=== PATIENT | female | born 1950 | race Hispanic/Latino ===

== ENCOUNTER 2021-03-21 18:52 | Inpatient (IN) | payer MEDICARE ==
[~2021-03-21] VITALS: Ht 152.4 cm; Wt 54.4 kg
[2021-03-21] MEDS ORDERED: ASPIRIN 81 MG CHEW TAB PO ONE (19:15)
[2021-03-21 19:37] LABS: BASOPHILS # (AUTO) 0.1 (0.0-0.1); BASOPHILS % 0.4 % (0.0-1.0); EOSINOPHILS # (AUTO) 0.2 (0.0-0.4); EOSINOPHILS % 1.5 % (0.0-6.0); HEMATOCRIT 35.6 % (34.2-44.1); HEMOGLOBIN 11.1 g/dL (12.0-16.0); LYMPHOCYTES # (AUTO) 1.5 (1.0-3.2); LYMPHOCYTES % 13.5 % (18.0-39.1); MEAN CORPUSCULAR HEMOGLOBIN 27.8 pg (28-32); MEAN CORPUSCULAR HGB CONC 31.2 g/dL (31-35); MEAN CORPUSCULAR VOLUME 89.2 fL (81-99); MONOCYTES # (AUTO) 0.9 (0.2-0.8); MONOCYTES % 7.7 % (4.4-11.3); NEUTROPHILS # (AUTO) 8.6 (2.1-6.9); NEUTROPHILS % 75.4 % (38.7-80.0); PLATELET COUNT 502 x10e3/uL (140-360); RED BLOOD COUNT 3.99 x10e6/uL (3.6-5.1); RED CELL DISTRIBUTION WIDTH 14.9 % (11.7-14.4)
[2021-03-21 19:57] LABS: ALANINE AMINOTRANSFERASE 36 IU/L (0-55); ALBUMIN 2.1 g/dL (3.5-5.0); ALBUMIN/GLOBULIN RATIO 0.4 (0.8-2.0); ALKALINE PHOSPHATASE 239 IU/L (40-150); ANION GAP 14.7 mmol/L (8-16); BLOOD UREA NITROGEN 11 mg/dL (7-26); BUN/CREATININE RATIO 16 (6-25); CALCIUM 8.6 mg/dL (8.4-10.2); CARBON DIOXIDE 23 mmol/L (22-29); CHLORIDE 100 mmol/L (98-107); CREATINE KINASE 20 IU/L (29-168); CREATININE, SERUM 0.68 mg/dL (0.57-1.11); EST GLOMERULAR FILTRATION RATE 85 ML/MIN (60-); GLUCOSE 312 mg/dL (74-118); POTASSIUM 4.7 mmol/L (3.5-5.1); SODIUM 133 mmol/L (136-145)
[2021-03-22 08:52] LABS: BASOPHILS % 0.4 % (0.0-1.0); EOSINOPHILS # (AUTO) 0.1 (0.0-0.4); EOSINOPHILS % 1.2 % (0.0-6.0); HEMATOCRIT 34.4 % (34.2-44.1); HEMOGLOBIN 10.7 g/dL (12.0-16.0); LYMPHOCYTES # (AUTO) 1.5 (1.0-3.2); MEAN CORPUSCULAR HEMOGLOBIN 27.6 pg (28-32); MEAN CORPUSCULAR HGB CONC 31.1 g/dL (31-35); MEAN CORPUSCULAR VOLUME 88.7 fL (81-99); MONOCYTES # (AUTO) 0.8 (0.2-0.8); MONOCYTES % 8.6 % (4.4-11.3); NEUTROPHILS # (AUTO) 6.6 (2.1-6.9); NEUTROPHILS % 72.3 % (38.7-80.0); PLATELET COUNT 455 x10e3/uL (140-360); RED BLOOD COUNT 3.88 x10e6/uL (3.6-5.1); RED CELL DISTRIBUTION WIDTH 14.9 % (11.7-14.4)
[2021-03-22 09:13] LABS: ALBUMIN 2.1 g/dL (3.5-5.0); ALBUMIN/GLOBULIN RATIO 0.5 (0.8-2.0); ANION GAP 14.1 mmol/L (8-16); CALCIUM 8.5 mg/dL (8.4-10.2); CREATININE, SERUM 0.58 mg/dL (0.57-1.11); POTASSIUM 4.1 mmol/L (3.5-5.1)
[2021-03-22 09:50] LABS: CREATINE KINASE 17 IU/L (29-168)
[2021-03-22] MEDS ORDERED: HYDRALAZINE HCL 20 MG/ML VIAL IV PRN (11:15)
[2021-03-22] MEDS ORDERED: DEXTROSE 50% SYRINGE 50 ML IV PRN (11:15)
[2021-03-22] MEDS: INSULIN LISPRO 100 UNIT/1 ML 3ML VIAL SQ SCH ×3 (11:37→21:09)
[2021-03-22] MEDS ORDERED: SODIUM CHLORIDE 0.9% 50ML 50 ML ONE (14:58)
[2021-03-22] MEDS ORDERED: IOPAMIDOL 370 MG/ML 200 ML INFUS..BTL INJ ONE (14:59)
[2021-03-22 16:08] VITALS: BP 100/62
[2021-03-22 16:11] VITALS: BP 100/62
[2021-03-22 16:16] VITALS: BP 100/62
[2021-03-22] MEDS: VANCOMYCIN HCL 125 MG CAPSULE PO SCH ×2 (17:17→23:39)
[2021-03-22] MEDS ORDERED: METFORMIN HCL500 MG PO (17:52)
[2021-03-22] MEDS ORDERED: GLIMEPIRIDE2 MG PO (17:52)
[2021-03-22 20:00] VITALS: BP 140/77
[2021-03-22 21:00] VITALS: BP 140/77
[2021-03-22] MEDS: GUAIFENESIN 600MG/DEXTROMETHORPHAN 30MG TABSR PO PRN (22:14)
[2021-03-23] VITALS (8 sets, daily range): BP systolic 106–120; BP diastolic 62–75
[2021-03-23] MEDS: VANCOMYCIN HCL 125 MG CAPSULE PO SCH ×4 (06:07→23:13)
[2021-03-23 06:08] LABS: BASOPHILS # (AUTO) 0.1 (0.0-0.1); BASOPHILS % 0.5 % (0.0-1.0); EOSINOPHILS # (AUTO) 0.2 (0.0-0.4); EOSINOPHILS % 2.2 % (0.0-6.0); HEMATOCRIT 33.4 % (34.2-44.1); HEMOGLOBIN 10.6 g/dL (12.0-16.0); LYMPHOCYTES # (AUTO) 1.5 (1.0-3.2); LYMPHOCYTES % 16.7 % (18.0-39.1); MEAN CORPUSCULAR HEMOGLOBIN 27.2 pg (28-32); MEAN CORPUSCULAR HGB CONC 31.7 g/dL (31-35); MEAN CORPUSCULAR VOLUME 85.6 fL (81-99); MONOCYTES % 10.8 % (4.4-11.3); NEUTROPHILS # (AUTO) 6.3 (2.1-6.9); NEUTROPHILS % 67.7 % (38.7-80.0); PLATELET COUNT 468 x10e3/uL (140-360); RED CELL DISTRIBUTION WIDTH 14.9 % (11.7-14.4)
[2021-03-23 06:18] LABS: ALBUMIN 1.9 g/dL (3.5-5.0); ALBUMIN/GLOBULIN RATIO 0.4 (0.8-2.0); ANION GAP 13.7 mmol/L (8-16); CALCIUM 8.3 mg/dL (8.4-10.2); CREATININE, SERUM 0.52 mg/dL (0.57-1.11); POTASSIUM 3.7 mmol/L (3.5-5.1)
[2021-03-23] MEDS: CHOLECALCIFEROL 400 UNIT TAB PO SCH (09:29)
[2021-03-23] MEDS: ASCORBIC ACID 500 MG TAB PO SCH (09:29)
[2021-03-23] MEDS: ZINC SULFATE 220 MG CAP PO SCH (09:29)
[2021-03-23] MEDS: INSULIN LISPRO 100 UNIT/1 ML 3ML VIAL SQ SCH ×5 (09:29→20:52)
[2021-03-23] MEDS: GUAIFENESIN 600MG/DEXTROMETHORPHAN 30MG TABSR PO PRN ×3 (09:50→23:13)
[2021-03-23] MEDS ORDERED: LACTOBACILLUS ACIDOPHILUS CAPSULE PO NR (10:30)
[2021-03-23] MEDS: LACTOBACILLUS ACIDOPHILUS CAPSULE PO SCH (16:32)
[2021-03-23] MEDS: INSULIN GLARGINE 100 UNITS/ML VIAL SQ SCH (20:54)
[2021-03-24 01:49] VITALS: BP 113/60
[2021-03-24] MEDS: GUAIFENESIN 600MG/DEXTROMETHORPHAN 30MG TABSR PO PRN ×2 (05:22→12:26)
[2021-03-24] MEDS: VANCOMYCIN HCL 125 MG CAPSULE PO SCH ×3 (05:22→16:22)
[2021-03-24 06:13] LABS: BASOPHILS # (AUTO) 0.1 (0.0-0.1); BASOPHILS % 0.8 % (0.0-1.0); EOSINOPHILS # (AUTO) 0.2 (0.0-0.4); EOSINOPHILS % 2.9 % (0.0-6.0); HEMATOCRIT 33.3 % (34.2-44.1); HEMOGLOBIN 10.4 g/dL (12.0-16.0); LYMPHOCYTES # (AUTO) 1.5 (1.0-3.2); LYMPHOCYTES % 18.6 % (18.0-39.1); MEAN CORPUSCULAR HEMOGLOBIN 27.2 pg (28-32); MEAN CORPUSCULAR HGB CONC 31.2 g/dL (31-35); MEAN CORPUSCULAR VOLUME 87.2 fL (81-99); MONOCYTES # (AUTO) 0.9 (0.2-0.8); MONOCYTES % 10.9 % (4.4-11.3); NEUTROPHILS # (AUTO) 5.2 (2.1-6.9); NEUTROPHILS % 63.2 % (38.7-80.0); PLATELET COUNT 439 x10e3/uL (140-360); RED BLOOD COUNT 3.82 x10e6/uL (3.6-5.1)
[2021-03-24 06:27] VITALS: BP 115/64
[2021-03-24 06:35] LABS: ALBUMIN 1.9 g/dL (3.5-5.0); BILIRUBIN,DIRECT 0.2 mg/dL (0.0-0.5)
[2021-03-24 06:58] LABS: ANION GAP 15.7 mmol/L (8-16); CALCIUM 8.2 mg/dL (8.4-10.2); CREATININE, SERUM 0.54 mg/dL (0.57-1.11); POTASSIUM 3.7 mmol/L (3.5-5.1)
[2021-03-24] MEDS: INSULIN LISPRO 100 UNIT/1 ML 3ML VIAL SQ SCH ×4 (08:19→21:32)
[2021-03-24] MEDS: CHOLECALCIFEROL 400 UNIT TAB PO SCH (08:21)
[2021-03-24] MEDS: ZINC SULFATE 220 MG CAP PO SCH (08:21)
[2021-03-24] MEDS: ASCORBIC ACID 500 MG TAB PO SCH (08:21)
[2021-03-24] MEDS: LACTOBACILLUS ACIDOPHILUS CAPSULE PO SCH ×2 (08:21→16:13)
[2021-03-24 09:15] VITALS: BP 108/72
[2021-03-24] MEDS: CHOLESTYRAMINE 4 GM PACKET PO SCH (16:13)
[2021-03-24 19:30] VITALS: BP 109/60
[2021-03-24 21:30] VITALS: BP 109/60
[2021-03-24] MEDS: INSULIN GLARGINE 100 UNITS/ML VIAL SQ SCH (21:32)
[2021-03-25] VITALS (8 sets, daily range): BP systolic 104–125; BP diastolic 57–71
[2021-03-25] MEDS: VANCOMYCIN HCL 125 MG CAPSULE PO SCH ×4 (00:40→17:01)
[2021-03-25] MEDS: INSULIN LISPRO 100 UNIT/1 ML 3ML VIAL SQ SCH ×4 (08:02→21:00)
[2021-03-25] MEDS: ZINC SULFATE 220 MG CAP PO SCH (08:05)
[2021-03-25] MEDS: CHOLECALCIFEROL 400 UNIT TAB PO SCH (08:05)
[2021-03-25] MEDS: LACTOBACILLUS ACIDOPHILUS CAPSULE PO SCH ×2 (08:05→17:00)
[2021-03-25] MEDS: CHOLESTYRAMINE 4 GM PACKET PO SCH ×2 (08:05→17:01)
[2021-03-25] MEDS: ASCORBIC ACID 500 MG TAB PO SCH (08:05)
[2021-03-25] MEDS: GUAIFENESIN 600MG/DEXTROMETHORPHAN 30MG TABSR PO PRN ×2 (12:03→17:01)
[2021-03-25] MEDS: INSULIN GLARGINE 100 UNITS/ML VIAL SQ SCH (21:00)
[2021-03-26] VITALS (8 sets, daily range): BP systolic 107–139; BP diastolic 63–77
[2021-03-26] MEDS: VANCOMYCIN HCL 125 MG CAPSULE PO SCH ×4 (01:00→17:15)
[2021-03-26] MEDS: PHENYLEPH/SHARK OIL/MO/PETROL 30 GM OINT RC PRN (04:52)
[2021-03-26 08:05] LABS: BASOPHILS # (AUTO) 0.1 (0.0-0.1); BASOPHILS % 0.6 % (0.0-1.0); EOSINOPHILS # (AUTO) 0.2 (0.0-0.4); EOSINOPHILS % 1.9 % (0.0-6.0); HEMATOCRIT 33.8 % (34.2-44.1); HEMOGLOBIN 10.5 g/dL (12.0-16.0); LYMPHOCYTES # (AUTO) 2.1 (1.0-3.2); LYMPHOCYTES % 23.2 % (18.0-39.1); MEAN CORPUSCULAR HEMOGLOBIN 27.1 pg (28-32); MEAN CORPUSCULAR HGB CONC 31.1 g/dL (31-35); MEAN CORPUSCULAR VOLUME 87.1 fL (81-99); MONOCYTES # (AUTO) 0.8 (0.2-0.8); MONOCYTES % 9.2 % (4.4-11.3); NEUTROPHILS # (AUTO) 5.4 (2.1-6.9); NEUTROPHILS % 61.1 % (38.7-80.0); PLATELET COUNT 453 x10e3/uL (140-360); RED BLOOD COUNT 3.88 x10e6/uL (3.6-5.1); RED CELL DISTRIBUTION WIDTH 15.2 % (11.7-14.4)
[2021-03-26 08:34] LABS: ANION GAP 12.8 mmol/L (8-16); CALCIUM 8.4 mg/dL (8.4-10.2); CREATININE, SERUM 0.58 mg/dL (0.57-1.11); MAGNESIUM 1.9 MG/DL (1.3-2.1); PHOSPHORUS 3.3 MG/DL (2.3-4.7); POTASSIUM 3.8 mmol/L (3.5-5.1)
[2021-03-26] MEDS: INSULIN LISPRO 100 UNIT/1 ML 3ML VIAL SQ SCH ×4 (09:05→21:00)
[2021-03-26] MEDS: ASCORBIC ACID 500 MG TAB PO SCH (09:09)
[2021-03-26] MEDS: CHOLESTYRAMINE 4 GM PACKET PO SCH ×2 (09:09→17:00)
[2021-03-26] MEDS: LACTOBACILLUS ACIDOPHILUS CAPSULE PO SCH ×2 (09:09→17:15)
[2021-03-26] MEDS: CHOLECALCIFEROL 400 UNIT TAB PO SCH (09:09)
[2021-03-26] MEDS: ZINC SULFATE 220 MG CAP PO SCH (09:09)
[2021-03-26] MEDS: GUAIFENESIN 600MG/DEXTROMETHORPHAN 30MG TABSR PO PRN (12:23)
[2021-03-26] MEDS: INSULIN GLARGINE 100 UNITS/ML VIAL SQ SCH (21:00)
[2021-03-27] VITALS (8 sets, daily range): BP systolic 103–130; BP diastolic 49–91
[2021-03-27] MEDS: GUAIFENESIN 600MG/DEXTROMETHORPHAN 30MG TABSR PO PRN (01:30)
[2021-03-27] MEDS: HYDROCODONE/APAP 10MG-325MG TAB PO PRN ×2 (01:30→21:35)
[2021-03-27] MEDS: PHENYLEPH/SHARK OIL/MO/PETROL 30 GM OINT RC PRN (01:30)
[2021-03-27] MEDS: VANCOMYCIN HCL 125 MG CAPSULE PO SCH ×4 (06:00→16:32)
[2021-03-27 06:34] LABS: BASOPHILS # (AUTO) 0.1 (0.0-0.1); EOSINOPHILS # (AUTO) 0.2 (0.0-0.4); EOSINOPHILS % 2.2 % (0.0-6.0); HEMATOCRIT 33.6 % (34.2-44.1); HEMOGLOBIN 10.3 g/dL (12.0-16.0); LYMPHOCYTES # (AUTO) 2.8 (1.0-3.2); LYMPHOCYTES % 30.4 % (18.0-39.1); MEAN CORPUSCULAR HEMOGLOBIN 27.2 pg (28-32); MEAN CORPUSCULAR HGB CONC 30.7 g/dL (31-35); MEAN CORPUSCULAR VOLUME 88.7 fL (81-99); MONOCYTES % 10.7 % (4.4-11.3); NEUTROPHILS # (AUTO) 4.8 (2.1-6.9); NEUTROPHILS % 51.7 % (38.7-80.0); PLATELET COUNT 454 x10e3/uL (140-360); RED BLOOD COUNT 3.79 x10e6/uL (3.6-5.1); RED CELL DISTRIBUTION WIDTH 15.2 % (11.7-14.4)
[2021-03-27 07:00] LABS: ALBUMIN 2.1 g/dL (3.5-5.0); ALBUMIN/GLOBULIN RATIO 0.5 (0.8-2.0); ANION GAP 12.9 mmol/L (8-16); CALCIUM 8.2 mg/dL (8.4-10.2); CREATININE, SERUM 0.62 mg/dL (0.57-1.11); POTASSIUM 3.9 mmol/L (3.5-5.1)
[2021-03-27] MEDS: INSULIN LISPRO 100 UNIT/1 ML 3ML VIAL SQ SCH ×4 (07:30→21:00)
[2021-03-27] MEDS: ZINC SULFATE 220 MG CAP PO SCH (08:33)
[2021-03-27] MEDS: ASCORBIC ACID 500 MG TAB PO SCH (08:34)
[2021-03-27] MEDS: CHOLESTYRAMINE 4 GM PACKET PO SCH ×2 (08:34→16:32)
[2021-03-27] MEDS: LACTOBACILLUS ACIDOPHILUS CAPSULE PO SCH ×2 (08:34→16:31)
[2021-03-27] MEDS: CHOLECALCIFEROL 400 UNIT TAB PO SCH (08:34)
[2021-03-27] MEDS: INSULIN GLARGINE 100 UNITS/ML VIAL SQ SCH (21:00)
[2021-03-28] VITALS (8 sets, daily range): BP systolic 90–114; BP diastolic 59–72
[2021-03-28 05:59] LABS: BASOPHILS # (AUTO) 0.1 (0.0-0.1); EOSINOPHILS # (AUTO) 0.2 (0.0-0.4); EOSINOPHILS % 1.7 % (0.0-6.0); HEMATOCRIT 34.3 % (34.2-44.1); HEMOGLOBIN 10.5 g/dL (12.0-16.0); LYMPHOCYTES # (AUTO) 2.3 (1.0-3.2); LYMPHOCYTES % 26.5 % (18.0-39.1); MEAN CORPUSCULAR HEMOGLOBIN 26.6 pg (28-32); MEAN CORPUSCULAR HGB CONC 30.6 g/dL (31-35); MEAN CORPUSCULAR VOLUME 86.8 fL (81-99); MONOCYTES # (AUTO) 0.9 (0.2-0.8); NEUTROPHILS # (AUTO) 4.8 (2.1-6.9); NEUTROPHILS % 56.1 % (38.7-80.0); PLATELET COUNT 469 x10e3/uL (140-360); RED BLOOD COUNT 3.95 x10e6/uL (3.6-5.1)
[2021-03-28] MEDS: VANCOMYCIN HCL 125 MG CAPSULE PO SCH ×4 (06:00→16:40)
[2021-03-28 06:26] LABS: ALBUMIN 2.1 g/dL (3.5-5.0); ANION GAP 11.9 mmol/L (8-16); CALCIUM 8.4 mg/dL (8.4-10.2); CREATININE, SERUM 0.6 mg/dL (0.57-1.11); POTASSIUM 3.9 mmol/L (3.5-5.1)
[2021-03-28 06:27] LABS: ALBUMIN/GLOBULIN RATIO 0.5 (0.8-2.0)
[2021-03-28] MEDS: ASCORBIC ACID 500 MG TAB PO SCH (07:51)
[2021-03-28] MEDS: ZINC SULFATE 220 MG CAP PO SCH (07:51)
[2021-03-28] MEDS: LACTOBACILLUS ACIDOPHILUS CAPSULE PO SCH ×2 (07:51→16:40)
[2021-03-28] MEDS: CHOLECALCIFEROL 400 UNIT TAB PO SCH (07:51)
[2021-03-28] MEDS: CHOLESTYRAMINE 4 GM PACKET PO SCH ×2 (07:52→16:36)
[2021-03-28] MEDS: INSULIN LISPRO 100 UNIT/1 ML 3ML VIAL SQ SCH ×4 (08:14→21:00)
[2021-03-28] MEDS: INSULIN GLARGINE 100 UNITS/ML VIAL SQ SCH (22:34)
[2021-03-29 00:17] VITALS: BP 92/53
[2021-03-29] MEDS ORDERED: ACETAMINOPHEN 325 MG TAB PO PRN (03:45)
[2021-03-29 04:23] VITALS: BP 110/68
[2021-03-29 06:02] LABS: BASOPHILS # (AUTO) 0.1 (0.0-0.1); BASOPHILS % 0.7 % (0.0-1.0); EOSINOPHILS # (AUTO) 0.1 (0.0-0.4); HEMATOCRIT 32.3 % (34.2-44.1); HEMOGLOBIN 10.1 g/dL (12.0-16.0); LYMPHOCYTES # (AUTO) 2.3 (1.0-3.2); LYMPHOCYTES % 22.6 % (18.0-39.1); MEAN CORPUSCULAR HEMOGLOBIN 26.9 pg (28-32); MEAN CORPUSCULAR HGB CONC 31.3 g/dL (31-35); MEAN CORPUSCULAR VOLUME 86.1 fL (81-99); MONOCYTES % 9.6 % (4.4-11.3); NEUTROPHILS # (AUTO) 6.5 (2.1-6.9); NEUTROPHILS % 63.2 % (38.7-80.0); PLATELET COUNT 438 x10e3/uL (140-360); RED BLOOD COUNT 3.75 x10e6/uL (3.6-5.1)
[2021-03-29] MEDS: VANCOMYCIN HCL 125 MG CAPSULE PO SCH ×3 (06:19→08:31)
[2021-03-29 06:52] LABS: ALBUMIN 2.1 g/dL (3.5-5.0); ALBUMIN/GLOBULIN RATIO 0.5 (0.8-2.0); ANION GAP 15.6 mmol/L (8-16); CALCIUM 8.2 mg/dL (8.4-10.2); CREATININE, SERUM 0.62 mg/dL (0.57-1.11); POTASSIUM 3.6 mmol/L (3.5-5.1)
[2021-03-29] MEDS: CHOLESTYRAMINE 4 GM PACKET PO SCH ×2 (07:27→17:00)
[2021-03-29] MEDS: LACTOBACILLUS ACIDOPHILUS CAPSULE PO SCH ×2 (08:30→17:16)
[2021-03-29] MEDS: ASCORBIC ACID 500 MG TAB PO SCH (08:30)
[2021-03-29] MEDS: CHOLECALCIFEROL 400 UNIT TAB PO SCH (08:31)
[2021-03-29] MEDS: ZINC SULFATE 220 MG CAP PO SCH (08:31)
[2021-03-29] MEDS: INSULIN LISPRO 100 UNIT/1 ML 3ML VIAL SQ SCH ×3 (09:58→17:19)
[2021-03-29 10:10] VITALS: BP_SYST 108; BP_SYST 112; BP_DIAS 62; BP_DIAS 68
[2021-03-29 10:15] VITALS: BP 108/68
[2021-03-29] MEDS ORDERED: CHOLESTYRAMINE L4 GM PO ×2 (11:43→11:53)
[2021-03-29] MEDS ORDERED: VANCOMYCIN HCL125 MG PO ×2 (11:43→11:52)
[2021-03-29] MEDS ORDERED: ASPIRIN81 MG PO (11:48)
[2021-03-29] MEDS ORDERED: SHARK OIL RC (11:51)
[2021-03-29] MEDS ORDERED: Lactobacillus Acidophilus PO (11:51)
[2021-03-29] MEDS ORDERED: MUCINEX DM ER1 EACH PO ×2 (11:51→11:53)
[2021-03-29] MEDS ORDERED: PHENYLEPH RC (11:51)
[2021-03-29] MEDS ORDERED: ACETAMINOPHEN325 M1 PO ×2 (11:51→11:53)
[2021-03-29] MEDS ORDERED: [UNRECOGNIZED DRUG - OTHER] RC (11:51)
[2021-03-29 14:06] VITALS: BP 126/75
[2021-03-29 14:09] VITALS: BP 126/75
== END 2021-03-29 21:33 | DRG 177 ==
LOC: ER 18:59 → ERHOLD 20:56 → IMCU 03-22 14:52
PROVIDERS: ADMIT Internal Medicine; ATTEND Internal Medicine
DX: U07.1 COVID-19 (principal); J12.82 Pneumonia due to coronavirus disease 2019; J96.01 Acute respiratory failure with hypoxia; A04.72 Enterocolitis due to Clostridium difficile, not specified as recurrent; E78.5 Hyperlipidemia, unspecified; I10 Essential (primary) hypertension; E11.65 Type 2 diabetes mellitus with hyperglycemia; J98.4 Other disorders of lung; I27.20 Pulmonary hypertension, unspecified; D64.9 Anemia, unspecified
CPT/HCPCS: 36415; 71045; 71260; 80048; 80053; 80076; 82550; 82553; 82948; 83036; 83735; 83880; 84100; 84484; 85025; 93005; 96360; 96372; 97139; 99251; 99284; J1815; Q9967; U0002